=== PATIENT | male | born 2005 | race Hispanic/Latino ===

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

== ENCOUNTER 2025-03-03 20:43 | Emergency (ER) | payer BC, MEDICAID, OTHER | END 2025-03-03 22:15 | disposition home or self-care (01) | LOC: ERS 20:43 | DX: S69.91XA Unspecified injury of right wrist, hand and finger(s), initial encounter (principal); X50.1XXA Overexertion from prolonged static or awkward postures, initial encounter; Y93.66 Activity, soccer | CPT/HCPCS: 29125 ==